=== PATIENT | female | born 2000 | race Caucasian/White ===

== ENCOUNTER 2022-04-15 14:41 | Emergency (ER) | payer OTHER, SELFPAY ==
[2022-04-15 14:43] VITALS: BP 150/96; PULSE 105; RESP 18; TEMP 35.8; O2SAT 97; BMI 33.2
[2022-04-15 17:15] LABS: Absolute Lymphocyte Count 4.22 X10^3/uL (0.83-4.51); Absolute Neutrophil Count 8.8 X10^3/uL (2.0-7.7); Basophil# 0.05 X10^3/uL; Basophil% 0.4 % (0-1); Eosinophil# 0.23 X10^3/uL; Eosinophils% 1.6 % (0-5); Hematocrit 46.1 % (37-47); Lymphocyte # 4.22 X10^3/ul (0.83-4.51); Mean Corp Hgb Conc 32.5 g/dL (32-36); Mean Corpuscular Hgb 28.8 pg (27.0-32.0); Mean Corpuscular Volume 88.7 fL (81-99); Mean Platelet Vol. 9.8 fl (6.2-12.0); Monocyte# 0.66 X10^3/uL; Monocyte% 4.7 % (0-10); NRBC Flagged by Analyzer 0 % (0-5); Neutrophil # 8.83 X10^3/uL (2.7-7.7); Neutrophil % 62.7 % (47-70); Platelet Count 315 K/mm3 (150-450); RBC Distribution Width CV 11.9 % (11.6-14.6); RBC Distribution Width SD 38.3 fl (35.1-43.9); White Blood Count 14.1 K/mm3 (4.4-11.0)
[2022-04-15 17:29] LABS: Internal QC Validated? YES +Cl - CLEAR BKGD; Pregnancy, Serum, hCG Quali. NEGATIVE Negative
[2022-04-15 17:34] LABS: AST(SGOT) 10 U/L (15-37); Alanine Aminotransfer ALT/SGPT 22 U/L (13-56); Alkaline Phosphatase 91 U/L (45-117); Anion Gap 7 (5-15); BUN 12 mg/dL (7-18); BUN/Creat Ratio 13.7 RATIO (10-20); Chloride 102 mmol/L (98-107); Creatinine, Serum 0.88 mg/dL (0.55-1.02); EST Glomerular Filtration Rate 87 mL/min (>60); Est Glom Filt Rate - Afr Amer 106 mL/min (>60); Estimated Creatinine Clearance 106.57 ml/min; Glucose 93 mg/dL (74-106); Potassium 3.8 mmol/L (3.5-5.1); Sodium Level 137 mmol/L (136-145)
--- NOTE | 2022-04-15 17:40 | EX.ED.DYSGE1 ---
HPI History of Present Illness Chief Complaint: Dizziness Narrative Narrative: 22-year-old female presenting for evaluation of feeling off. She states she never feels this way. The patient states that she had a thyroidectomy 04/07/2022 and had follow-up lab work which included a thyroglobulin and a calcium which were normal. Today she was standing in her kitchen and started to feel a little lightheaded and had a wave of nausea come over her. This is now resolved. She states I I am feeling a little iick. She does admit to a little bit of lightheadedness. She is not had a fever, chills, cough. She denies neck pain or throat pain. She is not having chest pain or shortness of breath. [facility] Medical History Anxiety Depression OCD (obsessive compulsive disorder) Home Medications calcium carb,cit ER 600 mg-vit D3 12.5 mcg (500 unit) tablet,ext.rel 1 tab PO TID 04/15/22 [History Last Taken Unknown] cephalexin 500 mg capsule 500 mg PO Q12 #14 caps 04/15/22 [Rx Last Taken Unknown] escitalopram oxalate 20 mg tablet 20 mg PO DAILY 04/15/22 [History Last Taken Unknown] levothyroxine 150 mcg tablet 150 mcg PO DAILY 04/15/22 [History Last Taken Unknown] Allergy/AdvReac Type Severity Reaction Status Date / Time alcohol Allergy Rash Verified 04/15/22 14:43 Surgical History H/O thyroidectomy Hx of tonsillectomy Social History Smoking Status: Never smoker ROS ROS ED Constitutional Constitutional ED: Denies chills or fever(s) Eyes Eyes: Denies blurry vision or change in vision ENT ENT ED: Denies rhinorrhea or sore throat Cardiovascular Cardiovascular: Denies chest pain Respiratory/Chest Respiratory/Chest: Denies cough or dyspnea Gastrointestinal Gastrointestinal: Denies abdominal pain or constipation Genitourinary Genitourinary ED: Denies dysuria or hematuria Musculoskeletal Musculoskeletal: Denies arthralgias or back pain Integumentary Denies abscess or Abrasions Neurologic Neurologic: Denies headache(s) or paresthesias Psychiatric Psychiatric: Reports anxiety; Denies depression EXAM Physical Exam Const Vital Signs: 04/15/22 14:43 04/15/22 17:27 Temperature 96.4 F L Temperature Source Temporal Pulse Rate 105 H Respiratory Rate 18 Respiratory Effort Normal Non-Labored Respiratory Pattern Normal Blood Pressure 150/96 H Blood Pressure Mean 114 Pulse Ox 97 Oxygen Delivery Method Room Air Positive well nourished General Appearance ED: NAD; Negative for pallor HEENT Reports moist mucous membranes and dry mucous membranes Mouth ED: Yes dry mucous membranes Mouth: dry mucous membranes Eyes PERRL and EOMs intact bilaterally Neck no lymphadenopathy and supple Neck Narrative: No masses palpated. Surgical site clean, dry, intact. Chest Wall inspection of chest normal Resp normal respiratory effort Cardio regular rhythm Rate: tachycardic GI normal to inspection, nondistended, normoactive bowel sounds Neuro oriented x3 and CN's II-XII intact bilaterally Sensorium / Orientation: alert Motor Exam: strength 5/5 throughout Psych mental status grossly normal Mood & Affect: tearful Skin no rashes or lesions noted and no wounds General Skin Exam: Negative for jaundice or pallor MDM MDM MDM Narrative Medical decision making narrative: Patient presenting feeling a little bit off. She is status post thyroidectomy for papillary carcinoma. She had lab work drawn initially which was normal. Vital signs are stable and she is afebrile. She has no specific symptoms except for feeling a little off or a ick. Blood work was obtained and her CBC shows a slight leukocytosis of 14.1. Hemoglobin hematocrit are normal. Platelets are also within normal limits. Renal function electrolytes are all normal. LFTs unremarkable. TSH, T3, T4 are all normal. Calcium is normal. Urinalysis shows 500 leukocyte esterase, 0-5 RBCs, 10-25 white blood cells is contaminated with 10-25 squamous epithelial cells. There is 4+ bacteria. I did asked the patient if she had been catheterized during her recent surgery. She states she was knocked out she does not know if she was. She denies specific having urinary complaints. I discussed this with her at length. I will send a urine culture. Patient amenable to being treated with Keflex to treat for possible UTI. Since ultimately her other lab work is normal except for mild leukocytosis I think she stable for discharge. She will follow-up with her reversal print inspector and her PCP. Impression: 1. UTI 2. Nausea?resolved 3. Lightheadedness?resolved Lab Data Attestation: I reviewed the patient's lab results. Labs: Laboratory Results - last 24 hr 04/15/22 04/15/22 04/15/22 17:00 17:00 17:00 WBC 14.1 H RBC 5.20 Hgb 15.0 Hct 46.1 MCV 88.7 MCH 28.8 MCHC 32.5 RDW Std Deviation 38.3 RDW Coeff of Christa 11.9 Plt Count 315 MPV 9.8 Immature Gran % (Auto) 0.600 Neut % (Auto) 62.7 Lymph % (Auto) 30.0 [place] % (Auto) 4.7 Eos % (Auto) 1.6 Baso % (Auto) 0.4 Absolute Neuts (auto) 8.8 H Absolute Lymphs (auto) 4.22 Nucleated RBC % 0 Sodium 137 Potassium 3.8 Chloride 102 Carbon Dioxide 28.0 Anion Gap 7 BUN 12 Creatinine 0.88 Estim Creat Clear Calc 106.57 Est GFR (MDRD) Af Amer 106 Est GFR (MDRD) Non-Af 87 BUN/Creatinine Ratio 13.7 Glucose 93 Calcium 10.0 Total Bilirubin 0.40 AST 10 L ALT 22 Alkaline Phosphatase 91 Total Protein 8.0 Albumin 4.0 Globulin 4.0 Albumin/Globulin Ratio 1.0 TSH Free T4 Free T3 pg/dL Serum , Qual NEGATIVE Urine Color Urine Clarity Urine pH Ur Specific [place] Urine Protein Urine Glucose (UA) Urine Ketones Urine Occult Blood Urine Nitrite Urine Bilirubin Urine Urobilinogen Ur Leukocyte Esterase Urine RBC Urine WBC Ur Squamous Epith Cells Urine Bacteria Urine Mucus 04/15/22 04/15/22 17:00 18:38 WBC RBC Hgb Hct MCV MCH MCHC RDW Std Deviation RDW Coeff of Christa Plt Count MPV Immature Gran % (Auto) Neut % (Auto) Lymph % (Auto) [place] % (Auto) Eos % (Auto) Baso % (Auto) Absolute Neuts (auto) Absolute Lymphs (auto) Nucleated RBC % Sodium Potassium Chloride Carbon Dioxide Anion Gap BUN Creatinine Estim Creat Clear Calc Est GFR (MDRD) Af Amer Est GFR (MDRD) Non-Af BUN/Creatinine Ratio Glucose Calcium Total Bilirubin AST ALT Alkaline Phosphatase Total Protein Albumin Globulin Albumin/Globulin Ratio TSH 2.50 Free T4 1.01 Free T3 pg/dL 2.7 Serum , Qual Urine Color Yellow Urine Clarity Sl. Cloudy Urine pH 6.0 Ur Specific [place] 1.020 Urine Protein 15 H Urine Glucose (UA) Normal Urine Ketones Negative Urine Occult Blood 10 H Urine Nitrite Negative Urine Bilirubin Negative Urine Urobilinogen Normal Ur Leukocyte Esterase 500 H Urine RBC 0-5 SEEN Urine WBC 10-25 SEEN Ur Squamous Epith Cells 10-25 SEEN Urine Bacteria 4+ Urine Mucus 0 SEEN Discharge Plan Triage Chief Complaint: Dizziness Other Complaint: Nausea/Vomiting ED Provider: August Cabrera Dx/Rx/DC Orders Instructions: ED Cystitis Female Adult Prescriptions: New cephalexin 500 mg capsule 500 mg PO Q12 Qty: 14 0RF No Action levothyroxine 150 mcg tablet 150 mcg PO DAILY escitalopram oxalate 20 mg tablet 20 mg PO DAILY Label Comments: TAKE 1 TABLET BY MOUTH ONCE DAILY (STOP 10 MG) calcium carb and citrate-vitD3 600 mg-12.5 mcg (500 unit) Tablet Extended Release 1 tab PO TID Primary Care Provider: Reina Espinal NP Referrals: Reina Espinal NP, [facility] [Primary Care Provider] - Disposition Disposition: Home, Self Care
[2022-04-15 18:46] LABS: Mucous, Urine 0 SEEN /hpf (<or=2+)
[2022-04-15 19:07] LABS: Color, Urine Yellow (Yellow); Glucose, Dipstick Normal (Normal); Ketone-Dipstick Negative (Negative); Leukocyte Esterase-Dipstick 500 /ul (Negative); Nitrite-Dipstick Negative (Negative); Occult Blood-Urine 10 /ul (Negative); Protein-Dipstick 15 mg/dl (Negative); Urine Bilirubin Dipstick Negative (Negative); Urine Clarity Sl. Cloudy (Clear); Urine Urobilinogen Normal (Normal)
[2022-04-15 19:24] LABS: Bacteria 4+ /hpf (None Seen); Red Blood Cells-Urine 0-5 SEEN /hpf (0-5); Squamous Epithelial Cells - UA 10-25 SEEN /hpf (5-10); White Blood Cells 10-25 SEEN /hpf (0-5)
[2022-04-15 19:35] LABS: Free T3 2.7 pg/mL (2.18-3.98); T4 Free Direct 1.01 ng/dL (0.76-1.46)
[2022-04-15] MEDS: Cephalexin 250 MG Capsule 500 MG PO (20:34)
== END 2022-04-15 20:41 | disposition home or self-care (01) ==
PROVIDERS: Emergency Provider Student in an Organized Health Care Education/Training Program; PCP Nurse Practitioner Family; Visit Provider Student in an Organized Health Care Education/Training Program
DX: N39.0 Urinary tract infection, site not specified (principal); R42 Dizziness and giddiness; R11.2 Nausea with vomiting, unspecified; E89.0 Postprocedural hypothyroidism; F42.9 Obsessive-compulsive disorder, unspecified; F32.A Depression, unspecified; F41.9 Anxiety disorder, unspecified; Z79.890 Hormone replacement therapy; Z79.899 Other long term (current) drug therapy
CPT/HCPCS: 80053; 81001; 84439; 84443; 84481; 84703; 85025; 87086; 87088; 99284; A4216